=== PATIENT | female | born 1975 | race Caucasian/White ===

== ENCOUNTER 2017-09-05 10:03 | Emergency (ER) | payer MEDICAID ==
[~2017-09-05] VITALS: Ht 167.6 cm; Wt 137.3 kg
[2017-09-05 10:05] VITALS: TEMP 98.3
[2017-09-05] MEDS ORDERED: LEXAPRO 5MG5 MG PO (10:28)
[2017-09-05 10:30] LABS: BASO # 0.1 (0.0-0.2); BASO % 0.7 % (0.0-2.0); EOS # 0.1 (0.0-0.7); EOS % 1.7 % (0-4.0); GRAN # 4.2 (1.4-6.5); GRAN % 55.2 % (42.2-75.2); HEMATOCRIT 41.4 % (37.0-47.0); HEMOGLOBIN 14.1 g/dl (12.5-16.0); LYMPH # 2.7 (1.2-3.4); LYMPH % 35.5 % (20.0-51.0); MEAN CELL VOLUME 89 fl (80.0-100.0); MEAN CORPUSCULAR HEMOGLOBIN 30 pg (27.0-31.0); MEAN CORPUSCULAR HGB CONC 34 g/dl (33.0-37.0); MEAN PLATELET VOLUME 10.3 fl (7.4-10.4); MONO # 0.5 (0.1-0.6); MONO % 6.6 % (1.7-9.3); PLATELET COUNT 96 K/mm3 (130-400); RED BLOOD COUNT 4.68 M/mm3 (4.10-5.30); REDCELL DISTRIBUTION WIDTH-CV 15.2 % (11.5-14.5)
[2017-09-05 10:43] LABS: ALBUMIN 3.8 gm/dL (3.5-5.0); BILIRUBIN,TOTAL 1.4 mg/dL (0.0-1.0); CREATININE, serum 0.56 mg/dL (0.52-1.25); POTASSIUM 3.9 mmol/L (3.4-5.0); TOTAL PROTEIN 7.6 gm/dL (6.4-8.2)
[2017-09-05] MEDS ORDERED: CEPHALEXIN500 M1 PO (10:59)
[2017-09-05] MEDS ORDERED: NORCO 325 MG-51 TAB PO (11:03)
[2017-09-05 11:15] VITALS: BP 128/69; PULSE 90
== END 2017-09-05 11:24 | disposition home or self-care (01) ==
LOC: COL.ER 10:03
PROVIDERS: Family Medicine
DX: T63.331A Toxic effect of venom of brown recluse spider, accidental (unintentional), initial encounter (principal)
CPT/HCPCS: J2270; J2405; J7030

== ENCOUNTER 2018-09-18 22:05 | Emergency (ER) | payer MEDICAID ==
[~2018-09-18] VITALS: Ht 167.6 cm; Wt 140.9 kg
[~2018-09-18 22:05] MED LIST: CEPHALEXIN500 M1 PO; LEXAPRO 5MG5 MG PO; NORCO 325 MG-51 TAB PO
[2018-09-18 22:13] VITALS: TEMP 97.9
[2018-09-18] MEDS ORDERED: DOXYCYCLINE 10100 MG PO (23:43)
[2018-09-18] MEDS ORDERED: OMNICEF 300MG300 MG PO (23:43)
[2018-09-19 00:14] VITALS: BP 114/69; PULSE 97
== END 2018-09-19 00:15 | disposition home or self-care (01) ==
LOC: COL.ER 22:05
DX: L03.116 Cellulitis of left lower limb (principal); F41.9 Anxiety disorder, unspecified
CPT/HCPCS: J0696

== ENCOUNTER 2020-03-02 19:10 | Emergency (ER) | payer MEDICAID ==
[~2020-03-02] VITALS: Ht 167.6 cm; Wt 104.5 kg
[~2020-03-02 19:10] MED LIST changes: +DOXYCYCLINE 10100 MG PO; +OMNICEF 300MG300 MG PO
[2020-03-02 19:16] VITALS: TEMP 98.3
[2020-03-02] MEDS ORDERED: FLEXERIL 1010 MG/TAB PO (21:01)
[2020-03-02] MEDS ORDERED: NAPROSYN500 MG PO (21:01)
[2020-03-02 21:14] VITALS: BP 118/71; PULSE 79
== END 2020-03-02 21:16 | disposition home or self-care (01) ==
LOC: COL.ER 19:10
DX: S00.93XA Contusion of unspecified part of head, initial encounter (principal); S16.1XXA Strain of muscle, fascia and tendon at neck level, initial encounter; F32.9 Major depressive disorder, single episode, unspecified; V40.5XXA Car driver injured in collision with pedestrian or animal in traffic accident, initial encounter